=== PATIENT | male | born 1945 | race Caucasian/White ===

== ENCOUNTER → 2020-05-08 10:20 | Outpatient (BNVA) | payer MEDICARE, SELFPAY | PROVIDERS: Visit Provider Family Medicine | DX: E11.65 Type 2 diabetes mellitus with hyperglycemia (principal); Z85.850 Personal history of malignant neoplasm of thyroid | CPT/HCPCS: 83036 ==

== ENCOUNTER → 2020-08-22 09:42 | Outpatient (BNVA) | payer MEDICARE, SELFPAY | PROVIDERS: Visit Provider Family Medicine | DX: C64.9 Malignant neoplasm of unspecified kidney, except renal pelvis (principal); Z85.850 Personal history of malignant neoplasm of thyroid; E11.628 Type 2 diabetes mellitus with other skin complications; Z90.5 Acquired absence of kidney; I10 Essential (primary) hypertension | CPT/HCPCS: 80053; 83036; 85025 ==

== ENCOUNTER → 2020-11-21 09:34 | Outpatient (BNVA) | payer MEDICARE, SELFPAY | PROVIDERS: Visit Provider Family Medicine | DX: E11.628 Type 2 diabetes mellitus with other skin complications (principal) | CPT/HCPCS: 83036 ==

== ENCOUNTER → 2021-02-26 09:47 | Outpatient (BNVA) | payer MEDICARE, SELFPAY | PROVIDERS: Visit Provider Family Medicine | DX: E11.628 Type 2 diabetes mellitus with other skin complications (principal); Z85.850 Personal history of malignant neoplasm of thyroid; C64.9 Malignant neoplasm of unspecified kidney, except renal pelvis; E03.9 Hypothyroidism, unspecified | CPT/HCPCS: 80061; 83036; 84439; 84443 ==

== ENCOUNTER → 2021-03-11 08:48 | Outpatient (BNVA) | payer MEDICARE, SELFPAY | PROVIDERS: Referring Provider Family Medicine; Visit Provider Internal Medicine | DX: E11.628 Type 2 diabetes mellitus with other skin complications (principal); E89.0 Postprocedural hypothyroidism; Z85.850 Personal history of malignant neoplasm of thyroid; Z87.891 Personal history of nicotine dependence | CPT/HCPCS: 99204 ==

== ENCOUNTER → 2021-06-09 10:31 | Outpatient (BNVA) | payer MEDICARE, SELFPAY | PROVIDERS: Visit Provider Internal Medicine | DX: E11.628 Type 2 diabetes mellitus with other skin complications (principal); E89.0 Postprocedural hypothyroidism; E78.2 Mixed hyperlipidemia; E55.9 Vitamin D deficiency, unspecified; Z85.850 Personal history of malignant neoplasm of thyroid; Z87.891 Personal history of nicotine dependence; Z79.84 Long term (current) use of oral hypoglycemic drugs | CPT/HCPCS: 36415; 80053; 80061; 82306; 83036; 84439; 84443; 99214 ==

== ENCOUNTER → 2021-09-08 10:17 | Outpatient (BNVA) | payer MEDICARE, SELFPAY | PROVIDERS: Visit Provider Internal Medicine | DX: E11.628 Type 2 diabetes mellitus with other skin complications (principal); E55.9 Vitamin D deficiency, unspecified; E78.2 Mixed hyperlipidemia; E89.0 Postprocedural hypothyroidism; Z85.850 Personal history of malignant neoplasm of thyroid; Z87.891 Personal history of nicotine dependence; Z79.84 Long term (current) use of oral hypoglycemic drugs | CPT/HCPCS: 99214 ==

== ENCOUNTER 2021-11-30 14:14 | Emergency (ER) | payer OTHER, MEDICARE, SELFPAY ==
[2021-11-30 14:25] VITALS: BP 154/87; PULSE 67; RESP 18; TEMP 36.5; O2SAT 95; BMI 24.7
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
[2021-11-30] MEDS: naproxen 500 mg Tablet PO (15:01)
== END 2021-11-30 16:21 | disposition home or self-care (01) ==
PROVIDERS: Emergency Provider Emergency Medicine
DX: S13.4XXA Sprain of ligaments of cervical spine, initial encounter (principal); E11.9 Type 2 diabetes mellitus without complications; I10 Essential (primary) hypertension; Z85.850 Personal history of malignant neoplasm of thyroid; Z85.528 Personal history of other malignant neoplasm of kidney; Z90.5 Acquired absence of kidney; Z87.891 Personal history of nicotine dependence; V89.2XXA Person injured in unspecified motor-vehicle accident, traffic, initial encounter
CPT/HCPCS: 72125; 73030; 99284

== ENCOUNTER 2021-12-08 11:20 | Outpatient (CLI) | payer MEDICARE, SELFPAY ==
[2021-12-08 12:27] LABS: Alanine Aminotransferase 18 U/L (0-41); Albumin Level 4.6 g/dL (3.5-5.2); Alkaline Phosphatase 75 U/L (40-130); Anion Gap 15.6 (5-19); Aspartate Amino Transferase 9 U/L (0-40); Blood Urea Nitrogen 40 mg/dL (8-23); Calcium 9.7 mg/dL (8.5-10.5); Carbon Dioxide 26 mmol/L (22-29); Chloride 101 mmol/L (98-107); Chol HDL Ratio 3.62 mg/dL (1.0-5.00); Cholesterol 217 mg/dL (0-200); Globulin 2.8 g/dL (1.3-4.6); Glucose 143 mg/dL (65-115); HDL Cholesterol 60 mg/dL (60-100); LDL Cholesterol Calculated 138 mg/dL (50-129); Osmolality Calculated 298 mOsm/kg (285-295); Potassium 4.6 mmol/L (3.5-5.1); Sodium 138 mmol/L (136-145); Total Bilirubin 0.2 mg/dL (0.15-1.2); Total Protein 7.4 g/dL (6.6-8.7); Triglycerides 93 mg/dL (0-150)
[2021-12-08 12:31] LABS: Estmated Average Glucose 177; Hemoglobin A1C 7.8 % (4.0-6.0)
[2021-12-08 13:11] LABS: Free T4 Free Thyroxine 1.69 ng/dL (0.82-1.77)
== END 2021-12-08 11:21 | disposition home or self-care (01) ==
LOC: LAB 11:23
PROVIDERS: Visit Provider Internal Medicine
DX: E11.9 Type 2 diabetes mellitus without complications (principal); E55.9 Vitamin D deficiency, unspecified; E78.2 Mixed hyperlipidemia; E89.0 Postprocedural hypothyroidism; Z85.850 Personal history of malignant neoplasm of thyroid
CPT/HCPCS: 80053; 80061; 83036; 84439; 84443

== ENCOUNTER → 2021-12-09 08:34 | Outpatient (BNVA) | payer MEDICARE, SELFPAY | PROVIDERS: PCP Family Medicine; Visit Provider Internal Medicine | DX: E11.628 Type 2 diabetes mellitus with other skin complications (principal); E89.0 Postprocedural hypothyroidism; E55.9 Vitamin D deficiency, unspecified; E78.2 Mixed hyperlipidemia; Z85.850 Personal history of malignant neoplasm of thyroid; Z79.84 Long term (current) use of oral hypoglycemic drugs | CPT/HCPCS: 99214 ==

== ENCOUNTER 2021-12-16 11:56 | Outpatient (CLI) | payer MEDICARE, SELFPAY ==
[2021-12-16 12:56] LABS: Thyroid Stimulating Hormone 0.13 uIU/mL (0.27-4.20)
== END 2021-12-16 11:57 | disposition home or self-care (01) ==
LOC: LAB 11:59
PROVIDERS: PCP Family Medicine; Visit Provider Internal Medicine
DX: E89.0 Postprocedural hypothyroidism (principal)
CPT/HCPCS: 84443

== ENCOUNTER → 2022-01-20 14:22 | Outpatient (BNVA) | payer OTHER, MEDICARE, SELFPAY | PROVIDERS: PCP Family Medicine; Referring Provider Nurse Practitioner Family; Visit Provider Student in an Organized Health Care Education/Training Program | DX: M75.101 Unspecified rotator cuff tear or rupture of right shoulder, not specified as traumatic (principal) | CPT/HCPCS: 20610; 73030; 99204; J3301 ==

== ENCOUNTER 2022-02-17 10:48 | Outpatient (CLI) | payer OTHER, MEDICARE, SELFPAY ==
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
[2022-02-17 12:00] LABS: Free T4 Free Thyroxine 0.68 ng/dL (0.82-1.77); Thyroid Stimulating Hormone 29.47 uIU/mL (0.27-4.20)
== END 2022-02-17 10:49 | disposition home or self-care (01) ==
PROVIDERS: Specialist; PCP Family Medicine; Visit Provider Nurse Practitioner Family
DX: M75.101 Unspecified rotator cuff tear or rupture of right shoulder, not specified as traumatic (principal); E89.0 Postprocedural hypothyroidism; M25.411 Effusion, right shoulder; M19.011 Primary osteoarthritis, right shoulder
CPT/HCPCS: 73221; 84439; 84443

== ENCOUNTER 2022-03-03 12:45 | Outpatient (CLI) | payer MEDICARE, SELFPAY ==
[2022-03-03 13:45] LABS: Free T4 Free Thyroxine 1.18 ng/dL (0.82-1.77)
== END 2022-03-03 12:46 | disposition home or self-care (01) ==
LOC: LAB 12:45
PROVIDERS: PCP Family Medicine; Visit Provider Internal Medicine
DX: E03.9 Hypothyroidism, unspecified (principal)
CPT/HCPCS: 84439

== ENCOUNTER → 2022-03-11 08:43 | Outpatient (BNVA) | payer MEDICARE, SELFPAY | PROVIDERS: PCP Family Medicine; Visit Provider Internal Medicine | DX: E11.628 Type 2 diabetes mellitus with other skin complications (principal); E55.9 Vitamin D deficiency, unspecified; E78.2 Mixed hyperlipidemia; E89.0 Postprocedural hypothyroidism; Z85.850 Personal history of malignant neoplasm of thyroid; Z79.890 Hormone replacement therapy; Z79.84 Long term (current) use of oral hypoglycemic drugs | CPT/HCPCS: 99214 ==

== ENCOUNTER → 2022-04-23 13:39 | Outpatient (BNVA) | payer OTHER, MEDICARE, SELFPAY | PROVIDERS: PCP Family Medicine; Visit Provider Student in an Organized Health Care Education/Training Program | DX: M12.811 Other specific arthropathies, not elsewhere classified, right shoulder (principal) | CPT/HCPCS: 20610; 99213; J3301 ==

== ENCOUNTER → 2022-06-09 11:33 | Outpatient (BNVA) | payer MEDICARE, SELFPAY | PROVIDERS: PCP Family Medicine; Visit Provider Internal Medicine | DX: E89.0 Postprocedural hypothyroidism (principal); E55.9 Vitamin D deficiency, unspecified; E78.2 Mixed hyperlipidemia; Z85.850 Personal history of malignant neoplasm of thyroid; E11.9 Type 2 diabetes mellitus without complications; Z79.890 Hormone replacement therapy | CPT/HCPCS: 36415; 80053; 80061; 82044; 83036; 84439; 84443; 84480; 99214 ==

== ENCOUNTER 2022-09-04 08:55 | Outpatient (CLI) | payer MEDICARE, SELFPAY ==
[2022-09-04 09:49] LABS: Creatinine Urine, Random 78 mg/dL (39-259); Microalbumin Random Urine 15 ug/dL (0-20)
[2022-09-04 09:51] LABS: Microalbum Creatinine Ratio Ur 192 mg/dL (0-20)
[2022-09-04 09:59] LABS: Alanine Aminotransferase 17 U/L (0-41); Albumin Level 4.6 g/dL (3.5-5.2); Alkaline Phosphatase 81 U/L (40-130); Anion Gap 16.1 (5-19); Aspartate Amino Transferase 9 U/L (0-40); Blood Urea Nitrogen 31 mg/dL (8-23); Calcium 8.7 mg/dL (8.5-10.5); Carbon Dioxide 25 mmol/L (22-29); Chloride 102 mmol/L (98-107); Chol HDL Ratio 3.14 mg/dL (1.0-5.00); Cholesterol 201 mg/dL (0-200); Globulin 2.8 g/dL (1.3-4.6); Glucose 138 mg/dL (65-115); HDL Cholesterol 64 mg/dL (60-100); LDL Cholesterol Calculated 123 mg/dL (50-129); LDL HDL Ratio 1.92 RATIO (0.00-3.22); Osmolality Calculated 295 mOsm/kg (285-295); Potassium 5.1 mmol/L (3.5-5.1); Sodium 138 mmol/L (136-145); Thyroid Stimulating Hormone 0.08 uIU/mL (0.27-4.20); Total Bilirubin 0.3 mg/dL (0.15-1.2); Total Protein 7.4 g/dL (6.6-8.7); Triglycerides 69 mg/dL (0-150)
[2022-09-04 10:18] LABS: Estmated Average Glucose 189; Hemoglobin A1C 8.2 % (4.0-6.0)
[2022-09-04 10:25] LABS: Free T4 Free Thyroxine 1.76 ng/dL (0.82-1.77)
[2022-09-07 14:29] LABS: Thyroglobulin AB <1 IU/mL (< or = 1)
[2022-09-08 01:29] LABS: T3 Total 109 ng/dL (76-181)
[2022-09-09 14:09] LABS: Thyroglobulin Level <0.4 ng/mL
== END 2022-09-04 08:56 | disposition home or self-care (01) ==
PROVIDERS: PCP Family Medicine; Visit Provider Internal Medicine
DX: E11.9 Type 2 diabetes mellitus without complications (principal); E55.9 Vitamin D deficiency, unspecified; E78.2 Mixed hyperlipidemia; E89.0 Postprocedural hypothyroidism; Z85.850 Personal history of malignant neoplasm of thyroid; E11.628 Type 2 diabetes mellitus with other skin complications
CPT/HCPCS: 36415; 80053; 80061; 82044; 83036; 84432; 84439; 84443; 84480; 86800

== ENCOUNTER → 2022-09-08 10:41 | Outpatient (BNVA) | payer MEDICARE, SELFPAY | PROVIDERS: PCP Family Medicine; Visit Provider Internal Medicine | DX: E11.628 Type 2 diabetes mellitus with other skin complications (principal); E89.0 Postprocedural hypothyroidism; E55.9 Vitamin D deficiency, unspecified; E78.2 Mixed hyperlipidemia; Z85.850 Personal history of malignant neoplasm of thyroid; Z79.890 Hormone replacement therapy; Z79.84 Long term (current) use of oral hypoglycemic drugs | CPT/HCPCS: 99214 ==

== ENCOUNTER → 2022-10-29 13:37 | Outpatient (BNVA) | payer MEDICARE, SELFPAY | PROVIDERS: PCP Family Medicine; Visit Provider Student in an Organized Health Care Education/Training Program | DX: M12.811 Other specific arthropathies, not elsewhere classified, right shoulder (principal) | CPT/HCPCS: 20610; 99213; J3301 ==

== ENCOUNTER → 2022-11-18 14:44 | Outpatient (BNVA) | payer MEDICARE, SELFPAY | PROVIDERS: PCP Family Medicine; Visit Provider Internal Medicine | DX: E55.9 Vitamin D deficiency, unspecified; E78.2 Mixed hyperlipidemia; Z85.850 Personal history of malignant neoplasm of thyroid; E11.9 Type 2 diabetes mellitus without complications; E89.0 Postprocedural hypothyroidism; Z79.84 Long term (current) use of oral hypoglycemic drugs; Z79.890 Hormone replacement therapy | CPT/HCPCS: 99214 ==

== ENCOUNTER 2022-12-01 08:55 | Outpatient (CLI) | payer MEDICARE, SELFPAY ==
[2022-12-01 10:26] LABS: Creatinine Urine, Random 74 mg/dL (39-259); Microalbumin Random Urine 15 ug/dL (0-20)
[2022-12-01 10:32] LABS: Alanine Aminotransferase 15 U/L (0-41); Albumin Level 4.8 g/dL (3.5-5.2); Alkaline Phosphatase 78 U/L (40-130); Anion Gap 15.2 (5-19); Aspartate Amino Transferase 6 U/L (0-40); Blood Urea Nitrogen 35 mg/dL (8-23); Calcium 9.1 mg/dL (8.5-10.5); Carbon Dioxide 27 mmol/L (22-29); Chloride 100 mmol/L (98-107); Chol HDL Ratio 3.15 mg/dL (1.0-5.00); Cholesterol 211 mg/dL (0-200); Free T4 Free Thyroxine 1.48 ng/dL (0.82-1.77); Glucose 174 mg/dL (65-115); HDL Cholesterol 67 mg/dL (60-100); LDL Cholesterol Calculated 131 mg/dL (50-129); LDL HDL Ratio 1.96 RATIO (0.00-3.22); Osmolality Calculated 298 mOsm/kg (285-295); Potassium 4.2 mmol/L (3.5-5.1); Sodium 138 mmol/L (136-145); Thyroid Stimulating Hormone 0.88 uIU/mL (0.27-4.20); Total Bilirubin 0.4 mg/dL (0.15-1.2); Total Protein 7.8 g/dL (6.6-8.7); Triglycerides 67 mg/dL (0-150)
[2022-12-01 10:34] LABS: Microalbum Creatinine Ratio Ur 203 mg/dL (0-20)
[2022-12-01 10:52] LABS: Estmated Average Glucose 171; Hemoglobin A1C 7.6 % (4.0-6.0)
[2022-12-04 08:55] LABS: Thyroglobulin AB <1 IU/mL (< or = 1)
[2022-12-07 23:45] LABS: Thyroglobulin Level <0.4 ng/mL
== END 2022-12-01 08:56 | disposition home or self-care (01) ==
PROVIDERS: PCP Family Medicine; Visit Provider Internal Medicine
DX: E11.628 Type 2 diabetes mellitus with other skin complications (principal); E55.9 Vitamin D deficiency, unspecified; E78.2 Mixed hyperlipidemia; Z85.850 Personal history of malignant neoplasm of thyroid; E89.0 Postprocedural hypothyroidism; E11.9 Type 2 diabetes mellitus without complications
CPT/HCPCS: 36415; 80053; 80061; 82044; 83036; 84432; 84439; 84443; 86800

== ENCOUNTER 2023-02-16 08:53 | Outpatient (CLI) | payer MEDICARE, SELFPAY ==
[2023-02-16 09:44] LABS: Alanine Aminotransferase 11 U/L (0-41); Albumin Level 4.6 g/dL (3.5-5.2); Alkaline Phosphatase 100 U/L (40-130); Anion Gap 17.9 (5-19); Aspartate Amino Transferase 9 U/L (0-40); Blood Urea Nitrogen 40 mg/dL (8-23); Calcium 9.6 mg/dL (8.5-10.5); Carbon Dioxide 24 mmol/L (22-29); Chloride 99 mmol/L (98-107); Chol HDL Ratio 3.42 mg/dL (1.0-5.00); Cholesterol 219 mg/dL (0-200); Free T4 Free Thyroxine 1.25 ng/dL (0.82-1.77); Globulin 3.2 g/dL (1.3-4.6); Glucose 178 mg/dL (65-115); HDL Cholesterol 64 mg/dL (60-100); LDL Cholesterol Calculated 135 mg/dL (50-129); LDL HDL Ratio 2.11 RATIO (0.00-3.22); Osmolality Calculated 296 mOsm/kg (285-295); Potassium 4.9 mmol/L (3.5-5.1); Sodium 136 mmol/L (136-145); Total Bilirubin 0.4 mg/dL (0.15-1.2); Total Protein 7.8 g/dL (6.6-8.7); Triglycerides 99 mg/dL (0-150)
[2023-02-16 09:45] LABS: Estmated Average Glucose 217; Hemoglobin A1C 9.2 % (4.0-6.0)
[2023-02-16 10:10] LABS: Creatinine Urine, Random 73 mg/dL (39-259); Microalbumin Random Urine 15 ug/dL (0-20)
[2023-02-16 10:15] LABS: Microalbum Creatinine Ratio Ur 205 mg/dL (0-20)
== END 2023-02-16 08:54 | disposition home or self-care (01) ==
LOC: LAB 08:54
PROVIDERS: PCP Family Medicine; Visit Provider Internal Medicine
DX: E11.9 Type 2 diabetes mellitus without complications (principal); E55.9 Vitamin D deficiency, unspecified; E78.2 Mixed hyperlipidemia; Z85.850 Personal history of malignant neoplasm of thyroid; E11.628 Type 2 diabetes mellitus with other skin complications
CPT/HCPCS: 20610; 36415; 80053; 80061; 82044; 83036; 84439; 84443; 99213; J3301

== ENCOUNTER → 2023-02-19 07:30 | Outpatient (BNVA) | payer MEDICARE, SELFPAY | PROVIDERS: PCP Family Medicine; Visit Provider Internal Medicine | DX: E11.628 Type 2 diabetes mellitus with other skin complications (principal); E55.9 Vitamin D deficiency, unspecified; E78.2 Mixed hyperlipidemia; Z85.850 Personal history of malignant neoplasm of thyroid; E89.0 Postprocedural hypothyroidism; Z79.890 Hormone replacement therapy; Z79.84 Long term (current) use of oral hypoglycemic drugs | CPT/HCPCS: 99214 ==

== ENCOUNTER 2023-05-17 09:58 | Outpatient (CLI) | payer MEDICARE, SELFPAY ==
[2023-05-17 11:07] LABS: Estmated Average Glucose 214; Hemoglobin A1C 9.1 % (4.0-6.0)
[2023-05-17 11:19] LABS: Alanine Aminotransferase 13 U/L (0-41); Albumin Level 4.4 g/dL (3.5-5.2); Alkaline Phosphatase 76 U/L (40-130); Anion Gap 19.9 (5-19); Aspartate Amino Transferase 7 U/L (0-40); Blood Urea Nitrogen 42 mg/dL (8-23); Calcium 9.3 mg/dL (8.5-10.5); Carbon Dioxide 23 mmol/L (22-29); Chloride 98 mmol/L (98-107); Chol HDL Ratio 3.73 mg/dL (1.0-5.00); Cholesterol 231 mg/dL (0-200); Free T4 Free Thyroxine 1.21 ng/dL (0.82-1.77); Globulin 3.1 g/dL (1.3-4.6); Glucose 196 mg/dL (65-115); HDL Cholesterol 62 mg/dL (60-100); LDL Cholesterol Calculated 149 mg/dL (50-129); Osmolality Calculated 298 mOsm/kg (285-295); Potassium 4.9 mmol/L (3.5-5.1); Sodium 136 mmol/L (136-145); Thyroid Stimulating Hormone 3.75 uIU/mL (0.27-4.20); Total Bilirubin 0.3 mg/dL (0.15-1.2); Total Protein 7.5 g/dL (6.6-8.7); Triglycerides 99 mg/dL (0-150)
[2023-05-17 11:20] LABS: Creatinine Urine, Random 108 mg/dL (39-259); Microalbumin Random Urine 24 ug/dL (0-20)
[2023-05-17 11:25] LABS: Microalbum Creatinine Ratio Ur 222 mg/dL (0-20)
== END 2023-05-17 09:59 | disposition home or self-care (01) ==
LOC: LAB 10:00
PROVIDERS: PCP Family Medicine; Visit Provider Internal Medicine
DX: E11.9 Type 2 diabetes mellitus without complications (principal); Z85.850 Personal history of malignant neoplasm of thyroid
CPT/HCPCS: 36415; 80053; 80061; 82044; 83036; 84439; 84443

== ENCOUNTER → 2023-05-20 08:38 | Outpatient (BNVA) | payer MEDICARE, SELFPAY | PROVIDERS: PCP Family Medicine; Visit Provider Internal Medicine | DX: E11.628 Type 2 diabetes mellitus with other skin complications (principal); E55.9 Vitamin D deficiency, unspecified; E78.2 Mixed hyperlipidemia; Z85.850 Personal history of malignant neoplasm of thyroid; E89.0 Postprocedural hypothyroidism; Z79.890 Hormone replacement therapy; Z79.84 Long term (current) use of oral hypoglycemic drugs | CPT/HCPCS: 99214 ==

== ENCOUNTER → 2023-05-27 09:13 | Outpatient (BNVA) | payer MEDICARE, SELFPAY | PROVIDERS: PCP Family Medicine; Visit Provider Physician Assistant | DX: M12.811 Other specific arthropathies, not elsewhere classified, right shoulder (principal); M75.101 Unspecified rotator cuff tear or rupture of right shoulder, not specified as traumatic | CPT/HCPCS: 20610; 99213; J3301 ==

== ENCOUNTER → 2023-06-15 09:08 | Outpatient (BNVA) | payer MEDICARE, SELFPAY | PROVIDERS: PCP Family Medicine; Visit Provider Physician Assistant | DX: M25.561 Pain in right knee (principal); M25.562 Pain in left knee; M17.0 Bilateral primary osteoarthritis of knee | CPT/HCPCS: 73560; 73565; 99213 ==

== ENCOUNTER 2023-08-12 08:50 | Outpatient (CLI) | payer MEDICARE, SELFPAY ==
[2023-08-12 10:14] LABS: Estmated Average Glucose 220; Hemoglobin A1C 9.3 % (4.0-6.0)
[2023-08-12 10:25] LABS: Alanine Aminotransferase 17 U/L (0-41); Albumin Level 4.5 g/dL (3.5-5.2); Alkaline Phosphatase 93 U/L (40-130); Anion Gap 15.4 (5-19); Aspartate Amino Transferase 8 U/L (0-40); Blood Urea Nitrogen 35 mg/dL (8-23); Calcium 9.4 mg/dL (8.5-10.5); Carbon Dioxide 25 mmol/L (22-29); Chloride 100 mmol/L (98-107); Chol HDL Ratio 3.56 mg/dL (1.0-5.00); Cholesterol 249 mg/dL (0-200); Globulin 3.2 g/dL (1.3-4.6); Glucose 187 mg/dL (65-115); HDL Cholesterol 70 mg/dL (60-100); LDL Cholesterol Calculated 163 mg/dL (50-129); LDL HDL Ratio 2.33 RATIO (0.00-3.22); Osmolality Calculated 295 mOsm/kg (285-295); Potassium 4.4 mmol/L (3.5-5.1); Sodium 136 mmol/L (136-145); Thyroid Stimulating Hormone 4.19 uIU/mL (0.27-4.20); Total Bilirubin 0.4 mg/dL (0.15-1.2); Total Protein 7.7 g/dL (6.6-8.7); Triglycerides 82 mg/dL (0-150)
[2023-08-12 10:27] LABS: Creatinine Urine, Random 88 mg/dL (39-259); Microalbum Creatinine Ratio Ur 239 mg/dL (0-20); Microalbumin Random Urine 21 ug/dL (0-20)
[2023-08-16 12:00] LABS: Thyroglobulin AB <1 IU/mL (< or = 1)
[2023-08-17 17:24] LABS: Thyroglobulin Level <0.4 ng/mL
== END 2023-08-12 08:51 | disposition home or self-care (01) ==
LOC: LAB 08:51
PROVIDERS: PCP Family Medicine; Visit Provider Internal Medicine
DX: E11.628 Type 2 diabetes mellitus with other skin complications (principal); E55.9 Vitamin D deficiency, unspecified; E78.2 Mixed hyperlipidemia; E89.0 Postprocedural hypothyroidism
CPT/HCPCS: 36415; 80053; 80061; 82044; 83036; 84432; 84439; 84443; 86800

== ENCOUNTER → 2023-08-18 09:19 | Outpatient (BNVA) | payer MEDICARE, SELFPAY | PROVIDERS: PCP Family Medicine; Visit Provider Internal Medicine | DX: E11.628 Type 2 diabetes mellitus with other skin complications (principal); C64.9 Malignant neoplasm of unspecified kidney, except renal pelvis; E55.9 Vitamin D deficiency, unspecified; E89.0 Postprocedural hypothyroidism; Z85.850 Personal history of malignant neoplasm of thyroid; E78.2 Mixed hyperlipidemia; E11.65 Type 2 diabetes mellitus with hyperglycemia; Z79.890 Hormone replacement therapy; Z79.85 Long-term (current) use of injectable non-insulin antidiabetic drugs | CPT/HCPCS: 99214 ==

== ENCOUNTER → 2023-08-31 09:05 | Outpatient (BNVA) | payer MEDICARE, SELFPAY | PROVIDERS: PCP Family Medicine; Visit Provider Physician Assistant | DX: M12.811 Other specific arthropathies, not elsewhere classified, right shoulder (principal); M75.101 Unspecified rotator cuff tear or rupture of right shoulder, not specified as traumatic | CPT/HCPCS: 20610; 73030; 99213; J3301 ==

== ENCOUNTER 2023-11-19 07:45 | Outpatient (CLI) | payer MEDICARE, SELFPAY ==
[2023-11-19 08:42] LABS: Creatinine Urine, Random 77 mg/dL (39-259); Microalbumin Random Urine 35 ug/dL (0-20)
[2023-11-19 08:43] LABS: Microalbum Creatinine Ratio Ur 455 mg/dL (0-20)
[2023-11-19 08:47] LABS: Estmated Average Glucose 220; Hemoglobin A1C 9.3 % (4.0-6.0)
[2023-11-19 08:49] LABS: Alanine Aminotransferase 14 U/L (0-41); Albumin Level 4.7 g/dL (3.5-5.2); Alkaline Phosphatase 89 U/L (40-130); Anion Gap 19.3 (5-19); Aspartate Amino Transferase 7 U/L (0-40); Blood Urea Nitrogen 30 mg/dL (8-23); Calcium 9.4 mg/dL (8.5-10.5); Carbon Dioxide 23 mmol/L (22-29); Chloride 101 mmol/L (98-107); Chol HDL Ratio 3.81 mg/dL (1.0-5.00); Cholesterol 240 mg/dL (0-200); Free T4 Free Thyroxine 1.37 ng/dL (0.82-1.77); Globulin 3.1 g/dL (1.3-4.6); Glucose 189 mg/dL (65-115); HDL Cholesterol 63 mg/dL (60-100); LDL Cholesterol Calculated 155 mg/dL (50-129); LDL HDL Ratio 2.46 RATIO (0.00-3.22); Osmolality Calculated 299 mOsm/kg (285-295); Potassium 4.3 mmol/L (3.5-5.1); Sodium 139 mmol/L (136-145); Thyroid Stimulating Hormone 3.96 uIU/mL (0.27-4.20); Total Bilirubin 0.3 mg/dL (0.15-1.2); Total Protein 7.8 g/dL (6.6-8.7); Triglycerides 110 mg/dL (0-150)
[2023-11-22 10:10] LABS: Thyroglobulin AB <1 IU/mL (< or = 1)
== END 2023-11-19 07:46 | disposition home or self-care (01) ==
PROVIDERS: PCP Family Medicine; Visit Provider Internal Medicine
DX: E11.628 Type 2 diabetes mellitus with other skin complications (principal); C64.9 Malignant neoplasm of unspecified kidney, except renal pelvis; E55.9 Vitamin D deficiency, unspecified; E78.2 Mixed hyperlipidemia; E89.0 Postprocedural hypothyroidism; Z85.850 Personal history of malignant neoplasm of thyroid
CPT/HCPCS: 36415; 80053; 80061; 82044; 83036; 84432; 84439; 84443; 86800

== ENCOUNTER → 2023-11-23 07:44 | Outpatient (BNVA) | payer MEDICARE, SELFPAY | PROVIDERS: PCP Family Medicine; Visit Provider Internal Medicine | DX: E11.628 Type 2 diabetes mellitus with other skin complications (principal); E78.2 Mixed hyperlipidemia; Z85.850 Personal history of malignant neoplasm of thyroid; E89.0 Postprocedural hypothyroidism; B35.1 Tinea unguium; E55.9 Vitamin D deficiency, unspecified; Z79.890 Hormone replacement therapy; Z79.84 Long term (current) use of oral hypoglycemic drugs | CPT/HCPCS: 99214 ==

== ENCOUNTER → 2023-11-24 09:54 | Outpatient (BNVA) | payer MEDICARE, SELFPAY | PROVIDERS: PCP Family Medicine; Visit Provider Podiatrist Foot & Ankle Surgery | DX: L60.3 Nail dystrophy (principal); G62.9 Polyneuropathy, unspecified; I73.9 Peripheral vascular disease, unspecified; E11.42 Type 2 diabetes mellitus with diabetic polyneuropathy | CPT/HCPCS: 11721; 99203 ==

== ENCOUNTER → 2023-12-02 08:44 | Outpatient (BNVA) | payer MEDICARE, SELFPAY | PROVIDERS: PCP Family Medicine; Visit Provider Student in an Organized Health Care Education/Training Program | DX: M12.811 Other specific arthropathies, not elsewhere classified, right shoulder (principal) | CPT/HCPCS: 20610; 99213; J3301 ==

== ENCOUNTER → 2024-02-02 11:23 | Outpatient (BNVA) | payer MEDICARE, SELFPAY | PROVIDERS: PCP Family Medicine; Visit Provider Podiatrist Foot & Ankle Surgery | DX: L60.3 Nail dystrophy (principal); G62.9 Polyneuropathy, unspecified; I73.9 Peripheral vascular disease, unspecified; E11.42 Type 2 diabetes mellitus with diabetic polyneuropathy | CPT/HCPCS: 11721 ==

== ENCOUNTER 2024-02-22 08:42 | Outpatient (CLI) | payer MEDICARE, SELFPAY ==
[2024-02-22 09:49] LABS: Creatinine Urine, Random 75 mg/dL (39-259); Microalbumin Random Urine 8 ug/dL (0-20)
[2024-02-22 09:52] LABS: Microalbum Creatinine Ratio Ur 107 mg/dL (0-20)
[2024-02-22 09:55] LABS: Alanine Aminotransferase 20 U/L (0-41); Albumin Level 4.5 g/dL (3.5-5.2); Alkaline Phosphatase 69 U/L (40-130); Anion Gap 16.5 (5-19); Aspartate Amino Transferase 8 U/L (0-40); Blood Urea Nitrogen 49 mg/dL (8-23); Calcium 9.5 mg/dL (8.5-10.5); Carbon Dioxide 26 mmol/L (22-29); Chloride 96 mmol/L (98-107); Chol HDL Ratio 4.83 mg/dL (1.0-5.00); Cholesterol 314 mg/dL (0-200); Globulin 3.1 g/dL (1.3-4.6); Glucose 286 mg/dL (65-115); HDL Cholesterol 65 mg/dL (60-100); LDL Cholesterol Calculated 202 mg/dL (50-129); LDL HDL Ratio 3.11 RATIO (0.00-3.22); Osmolality Calculated 301 mOsm/kg (285-295); Potassium 4.5 mmol/L (3.5-5.1); Sodium 134 mmol/L (136-145); Thyroid Stimulating Hormone 9.85 uIU/mL (0.27-4.20); Total Bilirubin 0.3 mg/dL (0.15-1.2); Total Protein 7.6 g/dL (6.6-8.7); Triglycerides 236 mg/dL (0-150)
[2024-02-22 10:22] LABS: Free T4 Free Thyroxine 1.16 ng/dL (0.82-1.77)
[2024-02-22 10:53] LABS: Estmated Average Glucose 235; Hemoglobin A1C 9.8 % (4.0-6.0)
== END 2024-02-22 08:43 | disposition home or self-care (01) ==
PROVIDERS: PCP Family Medicine; Visit Provider Internal Medicine
DX: E11.628 Type 2 diabetes mellitus with other skin complications (principal); E78.2 Mixed hyperlipidemia; Z85.850 Personal history of malignant neoplasm of thyroid; E89.0 Postprocedural hypothyroidism
CPT/HCPCS: 36415; 80053; 80061; 82044; 83036; 84432; 84439; 84443; 86800

== ENCOUNTER → 2024-03-14 09:54 | Outpatient (BNVA) | payer MEDICARE, SELFPAY | PROVIDERS: PCP Family Medicine; Visit Provider Student in an Organized Health Care Education/Training Program | DX: M12.811 Other specific arthropathies, not elsewhere classified, right shoulder (principal); M75.101 Unspecified rotator cuff tear or rupture of right shoulder, not specified as traumatic | CPT/HCPCS: 20610; 99213; J3301 ==

== ENCOUNTER → 2024-04-05 08:57 | Outpatient (BNVA) | payer MEDICARE, SELFPAY | PROVIDERS: PCP Family Medicine; Visit Provider Podiatrist Foot & Ankle Surgery | DX: L60.3 Nail dystrophy (principal); G62.9 Polyneuropathy, unspecified; I73.9 Peripheral vascular disease, unspecified; E11.42 Type 2 diabetes mellitus with diabetic polyneuropathy; Z79.4 Long term (current) use of insulin | CPT/HCPCS: 11721 ==

== ENCOUNTER 2024-05-22 08:23 | Outpatient (CLI) | payer MEDICARE, SELFPAY ==
[2024-05-22 09:17] LABS: Estmated Average Glucose 194; Hemoglobin A1C 8.4 % (4.0-6.0)
[2024-05-22 09:35] LABS: Alanine Aminotransferase 17 U/L (0-41); Albumin Level 4.4 g/dL (3.5-5.2); Alkaline Phosphatase 69 U/L (40-130); Anion Gap 15.3 (5-19); Aspartate Amino Transferase 9 U/L (0-40); Blood Urea Nitrogen 24 mg/dL (8-23); Calcium 8.9 mg/dL (8.5-10.5); Carbon Dioxide 27 mmol/L (22-29); Chloride 99 mmol/L (98-107); Chol HDL Ratio 3.21 mg/dL (1.0-5.00); Cholesterol 225 mg/dL (0-200); Free T4 Free Thyroxine 1.47 ng/dL (0.82-1.77); Globulin 3.4 g/dL (1.3-4.6); Glucose 155 mg/dL (65-115); HDL Cholesterol 70 mg/dL (60-100); LDL Cholesterol Calculated 140 mg/dL (50-129); Osmolality Calculated 291 mOsm/kg (285-295); Potassium 4.3 mmol/L (3.5-5.1); Sodium 137 mmol/L (136-145); Thyroid Stimulating Hormone 0.46 uIU/mL (0.27-4.20); Total Bilirubin 0.3 mg/dL (0.15-1.2); Total Protein 7.8 g/dL (6.6-8.7); Triglycerides 73 mg/dL (0-150)
[2024-05-22 09:39] LABS: Creatinine Urine, Random 51 mg/dL (39-259)
[2024-05-22 09:52] LABS: Microalbum Creatinine Ratio Ur 980 mg/dL (0-20); Microalbumin Random Urine 50 ug/dL (0-20)
== END 2024-05-22 08:24 | disposition home or self-care (01) ==
LOC: LAB 08:25
PROVIDERS: PCP Nurse Practitioner Family; Visit Provider Internal Medicine
DX: E11.628 Type 2 diabetes mellitus with other skin complications (principal); E55.9 Vitamin D deficiency, unspecified; E78.2 Mixed hyperlipidemia; E89.0 Postprocedural hypothyroidism; Z85.850 Personal history of malignant neoplasm of thyroid
CPT/HCPCS: 36415; 80053; 80061; 82044; 83036; 84432; 84439; 84443; 86800

== ENCOUNTER → 2024-05-30 07:50 | Outpatient (BNVA) | payer MEDICARE, SELFPAY | PROVIDERS: PCP Family Medicine; Visit Provider Internal Medicine | DX: E11.628 Type 2 diabetes mellitus with other skin complications (principal); E55.9 Vitamin D deficiency, unspecified; E78.2 Mixed hyperlipidemia; Z85.850 Personal history of malignant neoplasm of thyroid; E89.0 Postprocedural hypothyroidism; B35.1 Tinea unguium | CPT/HCPCS: 99214 ==

== ENCOUNTER → 2024-06-06 08:45 | Outpatient (BNVA) | payer MEDICARE, SELFPAY | PROVIDERS: PCP Family Medicine; Visit Provider Podiatrist Foot & Ankle Surgery | DX: E11.42 Type 2 diabetes mellitus with diabetic polyneuropathy (principal); L60.3 Nail dystrophy; G62.9 Polyneuropathy, unspecified; I73.9 Peripheral vascular disease, unspecified; Z79.4 Long term (current) use of insulin | CPT/HCPCS: 11721 ==

== ENCOUNTER → 2024-08-10 08:49 | Outpatient (BNVA) | payer MEDICARE, SELFPAY | PROVIDERS: PCP Family Medicine; Visit Provider Podiatrist Foot & Ankle Surgery | DX: E11.42 Type 2 diabetes mellitus with diabetic polyneuropathy (principal); L60.3 Nail dystrophy; G62.9 Polyneuropathy, unspecified; I73.9 Peripheral vascular disease, unspecified; Z79.4 Long term (current) use of insulin | CPT/HCPCS: 11721 ==

== ENCOUNTER 2024-08-28 08:06 | Outpatient (CLI) | payer MEDICARE, SELFPAY ==
[2024-08-28 09:33] LABS: Estmated Average Glucose 220; Hemoglobin A1C 9.3 % (4.0-6.0)
[2024-08-28 09:52] LABS: Alanine Aminotransferase 20 U/L (0-41); Albumin Level 4.5 g/dL (3.5-5.2); Alkaline Phosphatase 102 U/L (40-130); Anion Gap 17.2 (5-19); Aspartate Amino Transferase 8 U/L (0-40); Blood Urea Nitrogen 40 mg/dL (8-23); Calcium 9.5 mg/dL (8.5-10.5); Carbon Dioxide 25 mmol/L (22-29); Chloride 99 mmol/L (98-107); Chol HDL Ratio 3.36 mg/dL (1.0-5.00); Cholesterol 205 mg/dL (0-200); Free T4 Free Thyroxine 1.25 ng/dL (0.82-1.77); Globulin 3.5 g/dL (1.3-4.6); Glucose 213 mg/dL (65-115); HDL Cholesterol 61 mg/dL (60-100); LDL Cholesterol Calculated 129 mg/dL (50-129); LDL HDL Ratio 2.11 RATIO (0.00-3.22); Osmolality Calculated 300 mOsm/kg (285-295); Potassium 4.2 mmol/L (3.5-5.1); Sodium 137 mmol/L (136-145); Thyroid Stimulating Hormone 0.71 uIU/mL (0.27-4.20); Total Bilirubin 0.4 mg/dL (0.15-1.2); Triglycerides 76 mg/dL (0-150)
[2024-08-28 10:14] LABS: Creatinine Urine, Random 78 mg/dL (39-259); Microalbumin Random Urine 27 ug/dL (0-20)
[2024-08-28 10:16] LABS: Microalbum Creatinine Ratio Ur 346 mg/dL (0-20)
[2024-08-30 08:59] LABS: Thyroglobulin AB <1 IU/mL (< or = 1)
[2024-09-02 14:10] LABS: Thyroglobulin Level <0.4 ng/mL
== END 2024-08-28 08:07 | disposition home or self-care (01) ==
PROVIDERS: PCP Family Medicine; Visit Provider Internal Medicine
DX: E11.628 Type 2 diabetes mellitus with other skin complications (principal); E55.9 Vitamin D deficiency, unspecified; E78.2 Mixed hyperlipidemia; Z85.850 Personal history of malignant neoplasm of thyroid; E89.0 Postprocedural hypothyroidism; B35.1 Tinea unguium
CPT/HCPCS: 36415; 80053; 80061; 82044; 83036; 84432; 84439; 84443; 86800

== ENCOUNTER → 2024-08-29 07:54 | Outpatient (BNVA) | payer MEDICARE, SELFPAY | PROVIDERS: PCP Family Medicine; Visit Provider Internal Medicine | DX: E11.628 Type 2 diabetes mellitus with other skin complications (principal); E89.0 Postprocedural hypothyroidism; E55.9 Vitamin D deficiency, unspecified; B35.1 Tinea unguium; E78.2 Mixed hyperlipidemia; Z85.850 Personal history of malignant neoplasm of thyroid | CPT/HCPCS: 99214 ==

== ENCOUNTER → 2024-11-16 08:16 | Outpatient (BNVA) | payer MEDICARE, SELFPAY | PROVIDERS: PCP Family Medicine; Visit Provider Podiatrist Foot & Ankle Surgery | DX: E11.42 Type 2 diabetes mellitus with diabetic polyneuropathy (principal); L60.3 Nail dystrophy; L84 Corns and callosities; G62.9 Polyneuropathy, unspecified; I73.9 Peripheral vascular disease, unspecified; M20.21 Hallux rigidus, right foot; M20.22 Hallux rigidus, left foot; Z79.4 Long term (current) use of insulin | CPT/HCPCS: 11055; 11721; 99213 ==

== ENCOUNTER 2024-11-24 08:32 | Outpatient (CLI) | payer MEDICARE, SELFPAY ==
[2024-11-24 10:24] LABS: Estmated Average Glucose 186; Hemoglobin A1C 8.1 % (4.0-6.0)
[2024-11-24 10:33] LABS: Creatinine Urine, Random 67 mg/dL (39-259)
[2024-11-24 10:39] LABS: Alanine Aminotransferase 18 U/L (0-41); Albumin Level 4.7 g/dL (3.5-5.2); Alkaline Phosphatase 87 U/L (40-130); Anion Gap 20.6 (5-19); Aspartate Amino Transferase 9 U/L (0-40); Blood Urea Nitrogen 44 mg/dL (8-23); Calcium 9.4 mg/dL (8.5-10.5); Carbon Dioxide 21 mmol/L (22-29); Chloride 104 mmol/L (98-107); Cholesterol 199 mg/dL (0-200); Free T4 Free Thyroxine 1.63 ng/dL (0.82-1.77); Globulin 3.3 g/dL (1.3-4.6); Glucose 143 mg/dL (65-115); HDL Cholesterol 61 mg/dL (60-100); Osmolality Calculated 306 mOsm/kg (285-295); Potassium 4.6 mmol/L (3.5-5.1); Sodium 141 mmol/L (136-145); Thyroid Stimulating Hormone 0.09 uIU/mL (0.27-4.20); Total Protein 8.0 g/dL (6.6-8.7); Triglycerides 90 mg/dL (0-150)
[2024-11-24 10:39] LABS: Microalbum Creatinine Ratio Ur 373 mg/dL (0-20)
== END 2024-11-24 08:33 | disposition home or self-care (01) ==
LOC: LAB 08:36
PROVIDERS: PCP Family Medicine; Visit Provider Internal Medicine
DX: B35.1 Tinea unguium (principal); E55.9 Vitamin D deficiency, unspecified; E78.2 Mixed hyperlipidemia; E89.0 Postprocedural hypothyroidism; Z85.850 Personal history of malignant neoplasm of thyroid; E11.628 Type 2 diabetes mellitus with other skin complications
CPT/HCPCS: 36415; 80053; 80061; 82044; 83036; 84432; 84439; 84443; 86800

== ENCOUNTER → 2024-11-28 07:55 | Outpatient (BNVA) | payer MEDICARE, SELFPAY | PROVIDERS: PCP Family Medicine; Visit Provider Internal Medicine | DX: E11.9 Type 2 diabetes mellitus without complications (principal); E55.9 Vitamin D deficiency, unspecified; E78.2 Mixed hyperlipidemia; Z85.850 Personal history of malignant neoplasm of thyroid; Z90.89 Acquired absence of other organs; Z98.890 Other specified postprocedural states; E03.9 Hypothyroidism, unspecified; B35.1 Tinea unguium | CPT/HCPCS: 99214 ==

== ENCOUNTER 2025-01-03 14:39 | Outpatient (CLI) | payer MEDICARE, SELFPAY ==
--- NOTE | 2025-01-03 15:00 | USR_ITS ---
PROCEDURE INFORMATION: Exam: US Soft Tissue Head and Neck, Thyroid Exam date and time: 01/03/2025 2:59 PM Age: 79 years old Clinical indication: Condition or disease; Cancer; Thyroid; Additional info: Z85.850 - personal history of malignant neoplasm of thyroid, please include TECHNIQUE: Imaging protocol: Real-time ultrasound scan of the neck with image documentation. Exam focused on the thyroid. COMPARISON: CT cervical spin wo con* [id number] 11/30/2021 3:21 PM FINDINGS: Right thyroid lobe: Surgically absent. No abnormal soft tissue in the thyroid bed. Left thyroid lobe: Surgically absent. No abnormal soft tissue in the thyroid bed. Isthmus: Surgically absent. Lymph nodes: Left cervical lymph node measures 0.5 x 0.2 x 1.2 cm and retains its fatty hilum. No cortical thickening. US/US thyroid [id number] tirads IMPRESSION: Status post total thyroidectomy without evidence of locally recurrent disease.
== END 2025-01-03 14:40 | disposition home or self-care (01) ==
LOC: RAD 14:39
PROVIDERS: PCP Family Medicine; Visit Provider Internal Medicine
DX: Z85.850 Personal history of malignant neoplasm of thyroid (principal); Z90.09 Acquired absence of other part of head and neck; R59.0 Localized enlarged lymph nodes
CPT/HCPCS: 76536

== ENCOUNTER → 2025-01-24 08:53 | Outpatient (BNVA) | payer MEDICARE, SELFPAY | PROVIDERS: PCP Family Medicine; Visit Provider Podiatrist Foot & Ankle Surgery | DX: E11.8 Type 2 diabetes mellitus with unspecified complications (principal); L60.3 Nail dystrophy; L84 Corns and callosities; G62.9 Polyneuropathy, unspecified; I73.9 Peripheral vascular disease, unspecified; M20.21 Hallux rigidus, right foot; M20.22 Hallux rigidus, left foot; E11.42 Type 2 diabetes mellitus with diabetic polyneuropathy; Z79.4 Long term (current) use of insulin | CPT/HCPCS: 11055; 11721 ==

== ENCOUNTER 2025-02-26 09:43 | Outpatient (CLI) | payer MEDICARE, SELFPAY ==
[2025-02-26 12:00] LABS: Creatinine Urine, Random 78 mg/dL (39-259)
[2025-02-26 12:02] LABS: Microalbum Creatinine Ratio Ur 410 mg/dL (0-20)
[2025-02-26 12:03] LABS: Alanine Aminotransferase 16 U/L (0-41); Albumin Level 5.2 g/dL (3.5-5.2); Alkaline Phosphatase 94 U/L (40-130); Anion Gap 16.4 (5-19); Aspartate Amino Transferase 8 U/L (0-40); Blood Urea Nitrogen 40 mg/dL (8-23); Calcium 10.5 mg/dL (8.5-10.5); Carbon Dioxide 28 mmol/L (22-29); Chloride 99 mmol/L (98-107); Cholesterol 281 mg/dL (0-200); Free T4 Free Thyroxine 1.10 ng/dL (0.82-1.77); Globulin 3.7 g/dL (1.3-4.6); Glucose 216 mg/dL (65-115); HDL Cholesterol 67 mg/dL (60-100); Osmolality Calculated 302 mOsm/kg (285-295); Potassium 5.4 mmol/L (3.5-5.1); Sodium 138 mmol/L (136-145); Thyroid Stimulating Hormone 6.44 uIU/mL (0.27-4.20); Total Protein 8.9 g/dL (6.6-8.7); Triglycerides 126 mg/dL (0-150)
[2025-02-26 12:04] LABS: Estmated Average Glucose 192; Hemoglobin A1C 8.3 % (4.0-6.0)
== END 2025-02-26 09:44 | disposition home or self-care (01) ==
LOC: LAB 09:44
PROVIDERS: PCP Family Medicine; Visit Provider Internal Medicine
DX: E11.628 Type 2 diabetes mellitus with other skin complications (principal); E03.9 Hypothyroidism, unspecified
CPT/HCPCS: 36415; 80053; 80061; 82044; 83036; 84439; 84443